=== PATIENT | male | born 1950 | race Caucasian/White ===

== ENCOUNTER 2017-02-06 07:28 | Day surgery (SDC) | payer OTHER ==
[2017-02-06] MEDS ORDERED: ETOMIDATE 20 MG/10 ML VIAL IVP ONE (07:33)
[2017-02-06] MEDS ORDERED: NS 500 ML IV ONE (07:33)
[2017-02-06] MEDS ORDERED: MIDAZOLAM 2 MG/2 ML VIAL IVP ONE (07:33)
[2017-02-06] MEDS ORDERED: BENZOCAINE UNIT DOSE SPRAY HURRICAINE MM ONE (07:33)
[2017-02-06] MEDS ORDERED: fentaNYL 100 MCG/2 ML INJ IVP ONE (07:33)
[2017-02-06] MEDS ORDERED: PROPOFOL 200 MG/20 ML VIAL IVP ONE (07:33)
--- NOTE | 2017-02-06 07:48 | CPEKG ---
Heart Rate: 76 RR Interval: 789 QRSD Interval: 110 QT Interval: 424 QTC Interval: 477 QRS [place]: 7 EKG Severity - ABNORMAL ECG - EKG Impression: ATRIAL FIBRILLATION EKG Impression: DIFFUSE T-WAVE ABNORMALITIES EKG Impression: MULTIFORM VENTRICULAR PREMATURE COMPLEXES EKG Impression: NONSPECIFIC INTRAVENTRICULAR CONDUCTION DELAY EKG Impression: COMPARED WITH 12/17/2013, PVCS NOW NOTED. Electronically Signed By: Ruth Ann Brunson 06-Feb-2017 11:47:23
[2017-02-06 08:14] LABS: APTT 29.5 SEC (23.0-38.0); INR 1.34 (0.83-1.16); PROTIME(PATIENT) 16.6 SEC (12.0-15.0)
[2017-02-06 08:27] LABS: ANION GAP 9 mEq/L (8-16); CALCIUM 9.4 mg/dL (8.5-10.4); CARBON DIOXIDE 25 mEq/l (22-31); CHLORIDE 108 mEq/L (97-110); CREATININE 0.9 mg/dL (0.7-1.3); GLOMERULAR FILTRATION RATE > 60; GLUCOSE 94 mg/dL (70-100); MAGNESIUM 1.9 mg/dL (1.6-2.3); POTASSIUM 4.2 mEq/L (3.5-5.2); SODIUM 142 mEq/L (134-144)
[2017-02-06] MEDS ORDERED: MIDAZOLAM 2 MG/2 ML VIAL ONE (08:54)
[2017-02-06] MEDS ORDERED: fentaNYL 100 MCG/2 ML INJ ONE (08:54)
--- NOTE | 2017-02-06 10:07 | CPEKG ---
Heart Rate: 65 RR Interval: 923 P-R Interval: 196 QRSD Interval: 106 QT Interval: 424 QTC Interval: 441 P [place]: 25 QRS [place]: -10 T Wave [place]: 0 EKG Severity - BORDERLINE ECG - EKG Impression: SINUS RHYTHM EKG Impression: BORDERLINE T WAVE ABNORMALITIES EKG Impression: COMPARED WITH 02/06/2017 AT 7:46 A.M., PVCS NOW ABSENT. Electronically Signed By: Ruth Ann Brunson 06-Feb-2017 11:46:51
--- NOTE | 2017-02-06 11:48 | CPIP ---
[f rep st] INVASIVE CARDIAC PROCEDURE DATE OF PROCEDURE: 02/06/2017 PROCEDURE: Elective direct current transesophageal echocardiogram-guided cardioversion. INDICATION FOR THE PROCEDURE/APPROPRIATE USE CRITERIA: Paroxysmal and sustained atrial fibrillation , which is symptomatic. PROCEDURE IN DETAIL: After informed consent was obtained and n.p.o. status was confirmed, the patie nt underwent transesophageal echocardiogram, documenting no evidence of a clot within the left atria l appendage. There was mild mitral regurgitation, and no evidence of spontaneous echo contrast with in the left atrium or left atrial appendage. The speed of the signal within the left atrial appenda ge was low, and less than 40 at around 20, and the left atrial appendage did appear to be in somewha t of a standstill. The patient has been on Eliquis for the past week at 5 mg twice a day. After documenting no evidence of atrial appendage clot, or spontaneous echo contrast of the left atr ium, the patient received intravenous deep sedation with 7 mg of etomidate. After adequate deep sed ation had been achieved, the patient underwent elective direct current cardioversion with 300 joules of biphasic countershock, delivered with the patches in anterior-posterior position and, of course, in synchronized fashion, with subsequent return of the rhythm to normal sinus with frequent PACs. DISPOSITION: The patient will be discharged home once he is able to ambulate and take p.o. without assistance. He will need to follow up with Dr. Parish Ramirez. I have discussed the patient's case wit h Dr. Ramirez, who has agreed to see him in followup. Because the patient will be anticoagulated, for a n indication of atrial fibrillation as opposed to his aortic valve, I think it is appropriate that keyshawn johnson be treated with a novel oral anticoagulation agent as opposed to Coumadin. His CHADS-VASc score i s 2 on the basis of age greater than 65 and hypertension and, therefore, the patient should probably be anticoagulated for life. 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 /[id number]/MODL
== END 2017-02-06 12:00 | disposition home or self-care (01) ==
LOC: FCATH 07:28
PROVIDERS: ATTEND Internal Medicine Cardiovascular Disease
PROC: B245ZZ4 Ultrasonography of Left Heart, Transesophageal (ICD-10-PCS; principal; 2017-02-06)
PROC: 5A2204Z Restoration of Cardiac Rhythm, Single (ICD-10-PCS; principal; 2017-02-06)
DX: I48.0 Paroxysmal atrial fibrillation (principal); I10 Essential (primary) hypertension; I51.9 Heart disease, unspecified; Z95.2 Presence of prosthetic heart valve; Z79.01 Long term (current) use of anticoagulants
CPT/HCPCS: J2250; J3010

== ENCOUNTER → 2017-04-15 | Outpatient (CLI) | payer OTHER ==
[~2017-04-15] MED LIST: IOPAMIDOL (ISOVUE 370) 100 ML BTL IV ONE
== END ==
LOC: FIMAGING 15:12
PROVIDERS: ATTEND Internal Medicine Cardiovascular Disease
DX: I48.91 Unspecified atrial fibrillation (principal); I48.92 Unspecified atrial flutter
CPT/HCPCS: Q9967

== ENCOUNTER → 2017-04-22 | Day surgery (SDC) | payer OTHER ==
[~2017-04-22] MED LIST changes: +BUPIVACAINE 0.5% 30 ML SDV ONE; +DABIGATRAN ETEXILATE MESYL 150 MG CAP PO SCH; +DEXAMETHASONE 4 MG/ML VIAL ONE; +HEPARIN 10,000 UNIT/10 ML MDV ONE; +HEPARIN/DEXTROSE 25,000 UNIT/500 ML BAG ONE; -IOPAMIDOL (ISOVUE 370) 100 ML BTL IV ONE; +IOPAMIDOL (ISOVUE-300) 100 ML BTL ONE; +LIDOCAINE 1% 300 MG/30 ML SDV ONE; +MIDAZOLAM 2 MG/2 ML VIAL IVP ONE; +NS 1,000 ML IV ONE; +ONDANSETRON 4 MG/2 ML VIAL ONE; +PROPOFOL 200 MG/20 ML VIAL ONE; +SUCCINYLCHOLINE CHLORIDE*ANESTHESIA ONLY*200 MG/10 ML SYR IVP ONE; +fentaNYL 100 MCG/2 ML INJ ONE
--- NOTE | 2017-04-22 07:32 | CPEKG ---
Heart Rate: 71 RR Interval: 845 QRSD Interval: 112 QT Interval: 448 QTC Interval: 487 QRS [place]: -1 T Wave [place]: -61 EKG Severity - ABNORMAL ECG - EKG Impression: ATRIAL FIBRILLATION EKG Impression: NONSPECIFIC INTRAVENTRICULAR CONDUCTION DELAY Electronically Signed By: Parish Ramirez 22-Apr-2017 11:49:31
[2017-04-22 07:49] LABS: % IMMATURE GRANULYOCYTES 0.4 % (0.0-1.1); ABSOLUTE IMMATURE GRANULOCYTES 0.02 10^3/uL (0.00-0.10); ADD DIFF? NO; ADD MORPH? NO; ADD SCAN? NO; ATYPICAL LYMPHOCYTE FLAG 10 (0-99); FRAGMENT RBC FLAG 0 (0-99); HEMATOCRIT 43.5 % (40.0-51.0); HEMOGLOBIN 14.1 g/dL (13.7-17.5); LEFT SHIFT FLG 0 (0-99); LIPEMIA HEMOLYSIS FLAG 80 (0-99); MEAN CELL HEMOGLOBIN 26.5 pg (27.9-34.1); MEAN CELL HEMOGLOBIN CONCENTR. 32.4 g/dL (32.4-36.7); MEAN CELL VOLUME 81.8 fL (81.5-99.8); MEAN PLATELET VOLUME 10.3 fL (8.7-11.7); PLATELET CLUMPS FLAG 0 (0-99); PLATELET COUNT 116 10^3/uL (150-400); RED BLOOD CELL COUNT 5.32 10^6/uL (4.40-6.38); RED CELL DISTRIBUTION WIDTH 16.1 % (11.5-15.2)
[2017-04-22 07:57] LABS: INR 1.14 (0.83-1.16); PROTIME(PATIENT) 14.5 SEC (12.0-15.0)
[2017-04-22 07:58] LABS: APTT 26.1 SEC (23.0-38.0)
[2017-04-22 08:04] LABS: ANION GAP 11 mEq/L (8-16); CALCIUM 9.1 mg/dL (8.5-10.4); CARBON DIOXIDE 25 mEq/l (22-31); CHLORIDE 108 mEq/L (97-110); GLOMERULAR FILTRATION RATE > 60; GLUCOSE 104 mg/dL (70-100); MAGNESIUM 1.8 mg/dL (1.6-2.3); POTASSIUM 4.1 mEq/L (3.5-5.2); SODIUM 144 mEq/L (134-144)
--- NOTE | 2017-04-22 13:21 | CPIP ---
[f rep st] INVASIVE CARDIAC PROCEDURE DATE OF PROCEDURE: 04/22/2017 Patient was scheduled for an atrial fibrillation ablation. Transesophageal echocardiogram was done in the EP lab after induction of general anesthesia. A small thrombus was seen at distal aspect of the left atrial appendage. I reviewed these films with the patient's health and fitness instructor, Dr. Fidencio Umana, and both of us concur that this is consistent with the left atrial appendage thrombus. Therefore, the ablation procedure was canceled. The results were discussed with the patient and his once the patient was fully awake. He has been given Pradaxa 150 mg b.i.d., the first dose to be started this morning. We will repeat a transesophageal echocardiogram in 8 weeks and decide on further management based on the results of that RANDI. /[id number]/MODL MTDD
== END | disposition home or self-care (01) ==
LOC: FCATH 07:10
PROVIDERS: ATTEND Internal Medicine Cardiovascular Disease
PROC: B245ZZ4 Ultrasonography of Left Heart, Transesophageal (ICD-10-PCS; principal; 2017-04-22)
DX: I48.91 Unspecified atrial fibrillation (principal); I51.3 Intracardiac thrombosis, not elsewhere classified; Z79.01 Long term (current) use of anticoagulants
CPT/HCPCS: J0330; J1100; J1644; J2250; J2405; J2704; J3010; Q9967

== ENCOUNTER 2017-06-24 11:06 | Day surgery (SDC) | payer OTHER ==
[2017-06-24] MEDS ORDERED: fentaNYL 100 MCG/2 ML INJ IVP ONE (11:08)
[2017-06-24] MEDS ORDERED: BENZOCAINE UNIT DOSE SPRAY HURRICAINE MM ONE (11:08)
[2017-06-24] MEDS ORDERED: NS 500 ML IV ONE (11:08)
[2017-06-24] MEDS ORDERED: MIDAZOLAM 2 MG/2 ML VIAL IVP ONE (11:08)
[2017-06-24] MEDS ORDERED: MIDAZOLAM 2 MG/2 ML VIAL ONE (11:13)
[2017-06-24] MEDS ORDERED: fentaNYL 100 MCG/2 ML INJ ONE (11:13)
--- NOTE | 2017-06-24 11:39 | PDPROPOC ---
Sedation Plan of Care Sedation Plan of Care: vital signs stable ASA Classification: ASA 2 Planned drugs: fentanyl, midazolam Mallampati Score: Class 2 Mallampati Reference Image: Patient passed 3-3-2 rule?: Yes
--- NOTE | 2017-06-24 11:39 | PDHPUP ---
History & Physical Update H&P update statement: This history and physical update is based on an assessment of the patient which was completed after admission or registration (within 24 hours), but prior to the surgery/procedure. H&P update: H&P reviewed & patient examined, no change in patient's condition since H&P completed
--- NOTE | 2017-06-30 08:40 | ECHO ---
[email or web address] [address] [address] Main: [phone] Fax: Transesophageal Echocardiography Name: MARYA CALDERON MR#: [id number] Study Date: 06/24/2017 Study Time: 11:28 AM Date of : 1950 Age: 67 year(s) Height: ( ) Weight: ( ) BSA: Gender: Male Examination: RANDI Indication: evaluate JESSICA Image Quality: Contrast: Requested by: Parish Ramirez Heart Rate: Rhythm: Atrial fibrillation BP: / Procedure Staff Workers Compensation Claims Supervisor: Peyton Baxter Reading Physician: Ruth Ann Brunson Requesting Provider: RANDI Exam Details Measurements: Chambers Valvular Assessment AV/MV Valvular Assessment TV/PV Normal Normal Normal Name Value Range Name Value Range Name Value Range Additional Measurements: Findings: Left Ventricle: Normal size left ventricle. Low normal left ventricular systolic function. Left Atrium: Small secundum atrial septal defect vs. patent foramen ovale. Left to right color flow noted across the IAS. Left atrial enlargement.. Left Atrial Appendage: Slight color flow doppler in the left atrial appendage. Thrombus in left appendage. Right Atrium: Right atrial enlargement noted.. Mitral Valve: The mitral valve is normal in appearance. Mild mitral valve regurgitation is present. Aortic Valve: The aortic valve is a bioprosthesis. There is no obvious aortic insufficiency. Tricuspid Valve: The tricuspid valve appears normal. Mild tricuspid regurgitation is present. Patient: MARYA CALDERON Study Date: 06/24/2017 Page 1 of 2 11:28 AM Pericardium: No pericardial effusion. l1n (No Signature Object) Patient: MARYA CALDERON Study Date: 06/24/2017 Page 2 of 2 11:28 AM [id number]
== END 2017-06-24 13:40 | disposition home or self-care (01) ==
LOC: FCATH 11:06
PROVIDERS: ATTEND Internal Medicine Cardiovascular Disease
DX: I51.3 Intracardiac thrombosis, not elsewhere classified (principal); I48.1 Persistent atrial fibrillation
CPT/HCPCS: J2250; J3010

== ENCOUNTER 2017-09-22 10:59 | Day surgery (SDC) | payer OTHER ==
[2017-09-22] MEDS ORDERED: NS 500 ML IV ONE (11:09)
[2017-09-22] MEDS ORDERED: MIDAZOLAM 2 MG/2 ML VIAL IVP ONE (11:09)
[2017-09-22] MEDS ORDERED: fentaNYL 100 MCG/2 ML INJ IVP ONE (11:09)
[2017-09-22] MEDS ORDERED: BENZOCAINE UNIT DOSE SPRAY HURRICAINE MM ONE (11:09)
--- NOTE | 2017-09-22 12:14 | PDANEPAE ---
ANE History of Present Illness RANDI post CV to check for left A. clot ANE Past Medical History - Cardiovascular History Hx Hypertension: Yes Hx Arrhythmias: Yes Hx Coronary Artery / Peripheral Vascular Disease: Yes Hx CHF / Valvular Disease: Yes Cardiovascular History Comment: ON COREG. A FIB X1 W SUCCESSFUL CARDIOVERSION. AVR 02-25. BICUSPID VALVE. PVD. HIGH CHOL - Pulmonary History Hx COPD: No Hx Asthma/Reactive Airway Disease: No Hx Recent Upper Respiratory Infection: No Hx Oxygen in Use at Home: No Hx Sleep Apnea: No Pulmonary History Comment: SOB W MILD EXERTION, CAN DO 1 FLT STAIRS - Neurologic History Hx Cerebrovascular Accident: No Hx Seizures: No Hx Dementia: No - Endocrine History Hx Diabetes: No - Renal History Hx Renal Disorders: No - Liver History Hx Hepatic Disorders: No - Neurological & Psychiatric Hx Hx Neurological and Psychiatric Disorders: No - Cancer History Hx Cancer: No - Congenital Disorder History Hx Congenital Disorders: Yes Congenital History Comment: BICUSIPID AORTIC VALVE - GI History Hx Gastrointestinal Disorders: No - Chronic Pain History Chronic Pain: No - Surgical History Prior Surgeries: WISDOM TEETH. 02-25 AORTIC VALVE REPLACEMENT, AAA REP,. CARDIOVERSION X1,. HEART CATH ROBERTA , L SIDE -. RANDI X2 ANE Review of Systems Review of Systems: - Exercise capacity Exercise capacity: >=4 METS ANE Patient History - Allergies Allergies/Adverse Reactions: No Known Allergies Allergy (Unverified 09/14/13 12:18) - Home Medications Home medications: home medication list seen and reviewed Home Medications: Rosuvastatin Calcium [Crestor 20mg (*)] 20 mg PO DAILY 09/14/13 [Last Taken 04/01] Xarelto 20 mg PO DAILY 09/22/17 [Last Taken 09/21/17] - NPO status NPO Status: no food or drink >8 hours - Anes Hx Anes Hx: no prior problems - Smoking Hx Smoking Status: Never smoked - Alcohol Use Alcohol Use: None - Family Anes Hx Family Anes Hx: none Family Hx Anesthesia Complications: NONE ANE Labs/Vital Signs - Vital Signs Vital Signs: reviewed preoperatively; see RN documention for details Height: 175 cm Weight: 88.5 kg ANE Physical Exam - Airway Neck exam: FROM Mallampati Score: Class 2 Mouth exam: normal dental/mouth exam - Pulmonary Pulmonary: no respiratory distress - Cardiovascular Cardiovascular: regular rate and rhythym - ASA Status ASA Status: III ANE Anesthesia Plan Anesthesia Plan: GA with mask
[2017-09-22] MEDS ORDERED: PROPOFOL 200 MG/20 ML VIAL ONE (12:34)
[2017-09-22] MEDS ORDERED: LIDOCAINE 1% 5 ML SDV ONE (12:34)
--- NOTE | 2017-09-22 12:41 | PDGENHP ---
History & Physical Chief Complaint: AFIB prior JESSICA thrombus History of Present Illness: JESSICA thrombus on prior RANDI Relevant Physical Exam: S1S2 irreg. CTA. AO3 Cardiorespiratory Assessment: AFIB, prior JESSICA thrombus. For repeat RANDI
--- NOTE | 2017-09-22 16:37 | POSTANESTH ---
Post Anesthetic Evaluation Cardiovascular Status: Normal, Stable Respiratory Status: Normal, Stable Level of Consciousness/Mental Status: Can Participate in Eval Pain Control: Adequate, Prn Tx Ordered Nausea/Vomiting Control: Adequate, Prn Tx Ordered Complications Possibly Related to Anesthesia: None Noted
--- NOTE | 2017-09-23 09:11 | ECHO ---
[email or web address] [address] [address] Main: [phone] Fax: Transesophageal Echocardiography Name: MARYA CALDERON MR#: [id number] Study Date: 09/22/2017 Study Time: 12:44 PM Date of : 1950 Age: 67 year(s) Height: ( ) Weight: ( ) BSA: Gender: Male Examination: RANDI Indication: Eval JESSICA Image Quality: Contrast: Requested by: Parish Ramirez Heart Rate: Rhythm: BP: / Procedure Staff Barrel Builder: Omega Argueta Reading Physician: Parish Ramirez Requesting Provider: RANDI Exam Details Conclusions: The ejection fraction is estimated to be 50-55 %. No thrombus in left appendage. Mild to moderate mitral regurgitation. Mild to moderate tricuspid valve regurgitation. Measurements: Chambers Valvular Assessment AV/MV Valvular Assessment TV/PV Normal Normal Normal Name Value Range Name Value Range Name Value Range EF Range: 50-55 % Additional Measurements: Findings: Left Ventricle: Normal global systolic LV function. The ejection fraction is estimated to be 50-55 %. Left Atrium: There is a small left to right PFO.. Left Atrial Appendage: Good color flow doppler in the left atrial appendage. No thrombus in left appendage. Right Atrium: The right atrium is normal in size. Mitral Valve: Patient: MARYA CALDERON Study Date: 09/22/2017 Page 1 of 2 12:44 PM The mitral valve is normal in appearance. Mild to moderate mitral regurgitation. Aortic Valve: The aortic valve is a bioprosthesis. The prosthetic aortic valve is normal. Tricuspid Valve: The tricuspid valve appears normal. Mild to moderate tricuspid valve regurgitation. Pulmonic Valve: The pulmonic valve is normal in appearance and function. Pericardium: No pericardial effusion. l1n (No Signature Object) Patient: MARYA CALDERON Study Date: 09/22/2017 Page 2 of 2 12:44 PM [id number]
== END 2017-09-22 14:20 | disposition home or self-care (01) ==
LOC: FCATH 10:59
PROVIDERS: ATTEND Internal Medicine Cardiovascular Disease
PROC: B245ZZ4 Ultrasonography of Left Heart, Transesophageal (ICD-10-PCS; principal; 2017-09-22)
DX: I48.91 Unspecified atrial fibrillation (principal)
CPT/HCPCS: J2704

== ENCOUNTER 2018-01-22 08:04 | Day surgery (SDC) | payer OTHER ==
[2018-01-22] MEDS ORDERED: ATROPINE SULFATE 1 MG/10 ML SYR IVP ONE (08:11)
[2018-01-22] MEDS ORDERED: NS 500 ML IV ONE (08:11)
[2018-01-22] MEDS ORDERED: BENZOCAINE UNIT DOSE SPRAY HURRICAINE MM ONE (08:11)
[2018-01-22] MEDS ORDERED: MIDAZOLAM 2 MG/2 ML VIAL IVP ONE (08:11)
[2018-01-22] MEDS ORDERED: fentaNYL 100 MCG/2 ML INJ IVP ONE (08:11)
--- NOTE | 2018-01-22 08:24 | CPEKG ---
Heart Rate: 92 RR Interval: 652 QRSD Interval: 116 QT Interval: 364 QTC Interval: 451 QRS [place]: 11 T Wave [place]: 165 EKG Severity - ABNORMAL ECG - EKG Impression: ATRIAL FIBRILLATION, V-RATE 74-115 EKG Impression: NONSPECIFIC INTRAVENTRICULAR CONDUCTION DELAY EKG Impression: MINIMAL ST DEPRESSION, ANTEROLATERAL LEADS Electronically Signed By: Torsten Matias 22-Jan-2018 12:43:28
[2018-01-22] MEDS ORDERED: fentaNYL 100 MCG/2 ML INJ ONE (08:42)
[2018-01-22] MEDS ORDERED: ETOMIDATE 40 MG/20 ML INJ ONE (08:42)
[2018-01-22] MEDS ORDERED: MIDAZOLAM 2 MG/2 ML VIAL ONE (08:42)
[2018-01-22 08:50] LABS: INR 2.6 (0.83-1.16); PROTIME(PATIENT) 27.8 SEC (12.0-15.0)
--- NOTE | 2018-01-22 10:24 | PDPROPOC ---
Sedation Plan of Care ASA Classification: ASA 3 Planned drugs: fentanyl, midazolam, other (etomidate) Mallampati Score: Class 3 Mallampati Reference Image: Patient passed 3-3-2 rule?: Yes
--- NOTE | 2018-01-22 10:27 | PDHPUP ---
History & Physical Update H&P update statement: This history and physical update is based on an assessment of the patient which was completed after admission or registration (within 24 hours), but prior to the surgery/procedure. H&P update: H&P reviewed & patient examined, no change in patient's condition since H&P completed H&P changes: patient continues to be in rate controlled atrial fibrillation and needs cardioversion for shortness of breath....
--- NOTE | 2018-01-22 12:08 | CPIP ---
[f rep st] INVASIVE CARDIAC PROCEDURE DATE OF PROCEDURE: 01/22/2018 PROCEDURE PERFORMED: Elective direct current cardioversion. INDICATION: Paroxysmal and sustained atrial fibrillation with recent addition of Rythmol SR to the p atient's antiarrhythmic regimen. COMPLICATIONS: None. MODELING MANAGER: Fidencio Umana MD PROCEDURE IN DETAIL: After informed consent was obtained, n.p.o. status was confirmed, the patient u nderwent elective DC cardioversion initially with 250 joules biphasic countershock, delivered to the patches in the anterior and posterior position, 250 joules were given. The patient came out in a scar ctional escape rhythm with intermittent sinus rhythm with PACs and almost immediately reverted to atr ial fibrillation. A second shock of 300 joules was then administered in the same fashion without eff ect on the patient's rhythm. A final shock of 360 joules biphasic counter energy resulted in an inte rmittent junctional escape rhythm followed by sinus rhythm with PACs. The patient tolerated the proc edure well without immediate complication and should be able to be discharged to home after he is abl e ambulate and take p.o. without assistance. I am not hopeful that he will hold sinus rhythm given t he difficulty in getting him into sinus rhythm on Rythmol SR formulation. I would like for the patie nt to have a followup EKG in my office next Friday and if he still in atrial fibrillation at that point or has reverted to atrial fibrillation, I would recommend that we stop his Rythmol and readmit the patient to the hospital. If he reverts to atrial fibrillation before his discharge today, then I would stop the Rythmol today. Plan on admitting the patient at his convenience in 5-7 days for eithe r a load of sotalol or Tikosyn after consultation with Dr. Ramirez or Dr. Omer of our electrophysiology s [facility]. Copy requested to: Primary Care Physician /[id number]/MODL
--- NOTE | 2018-01-23 07:04 | CPEKG ---
Heart Rate: 65 RR Interval: 923 P-R Interval: 220 QRSD Interval: 116 QT Interval: 416 QTC Interval: 433 P [place]: 61 QRS [place]: 0 EKG Severity - ABNORMAL ECG - EKG Impression: SINUS RHYTHM EKG Impression: FIRST DEGREE AV BLOCK EKG Impression: Non-specific lateral T-wave inversions EKG Impression: NONSPECIFIC INTRAVENTRICULAR CONDUCTION DELAY Electronically Signed By: Torsten Matias 23-Jan-2018 13:03:16
== END 2018-01-22 12:20 | disposition home or self-care (01) ==
LOC: FCATH 08:04
PROVIDERS: ATTEND Internal Medicine Cardiovascular Disease
PROC: 5A2204Z Restoration of Cardiac Rhythm, Single (ICD-10-PCS; principal; 2018-01-22)
DX: I48.0 Paroxysmal atrial fibrillation (principal); I48.1 Persistent atrial fibrillation; I48.92 Unspecified atrial flutter; I31.1 Chronic constrictive pericarditis; Z79.01 Long term (current) use of anticoagulants; Z95.2 Presence of prosthetic heart valve
CPT/HCPCS: J2250; J3010

== ENCOUNTER → 2019-01-01 | Outpatient (CLI) | payer OTHER | LOC: EMCIMAGING 14:59 | PROVIDERS: ATTEND Physician Assistant Medical | DX: R94.02 Abnormal brain scan (principal); R41.3 Other amnesia; I48.91 Unspecified atrial fibrillation | CPT/HCPCS: 70553-PN ==

== ENCOUNTER → 2019-02-24 | Outpatient (CLI) | payer OTHER | LOC: FCPNEURO 13:55 ==